=== PATIENT | male | born 1970 | race Caucasian/White ===

== ENCOUNTER 2024-07-29 17:56 | Emergency (ER) | payer SELFPAY ==
[~2024-07-29] VITALS: Ht 170.2 cm; Wt 108.9 kg
[2024-07-29 18:40] LABS: BASOPHILS ABSOLUTE AUTO 0.03 K/mm3 (0.00-0.23); BASOPHILS PERCENT AUTO 1 % (0-2); EOSINOPHILS PERCENT AUTO 0 % (0-6); Hematocrit 36.9 % (37.0-53.0); IMMATURE GRAN ABSOLUTE AUTO 0.03 K/mm3 (0.00-0.10); IMMATURE GRAN PERCENT AUTO 1 % (0-1); LYMPHOCYTES PERCENT AUTO 11 % (21-46); MONOCYTES ABSOLUTE AUTO 0.69 K/mm3 (0.16-1.47); MONOCYTES PERCENT AUTO 11 % (4-13); Mean Corpuscular HGB 30.2 pg (26.0-34.0); Mean Corpuscular HGB Conc 32.5 g/dL (31.5-36.5); Mean Corpuscular Volume 93 fL (80-100); Mean Platelet Volume 10.1 fL (9.1-12.4); NEUTROPHILS ABSOLUTE AUTO 4.97 K/mm3 (1.96-9.15); NEUTROPHILS PERCENT AUTO 77 % (41-73); Platelet Count 109 K/mm3 (150-400); RDW Standard Deviation 61.5 fL (35.1-46.3); Red Blood Cell Count 3.97 M/mm3 (4.30-5.90); White Blood Cell Count 6.42 K/mm3 (4.00-11.30)
[2024-07-29 18:59] LABS: Albumin, Blood 2.8 g/dL (3.4-5.0); Albumin/Globulin Ratio 0.6 (0.8-1.8); Bilirubin, Total 1.8 mg/dL (0.1-1.0); Calcium, Blood 8.3 mg/dL (8.5-10.1); Creatinine, Blood 0.71 mg/dL (0.60-1.20); Globulin, Blood 4.6 g/dL (2.2-4.0); Potassium, Blood 3.9 mmol/L (3.5-5.5); Total Protein, Blood 7.4 g/dL (6.4-8.2)
[2024-07-29 19:05] LABS: Influenza A, PCR NEGATIVE (NEGATIVE); Influenza B, PCR NEGATIVE (NEGATIVE); Resp Syncytial Virus, PCR NEGATIVE (NEGATIVE); SARS-Cov-2 (COVID-19) PCR, MMC NEGATIVE (NEGATIVE)
== END 2024-07-29 22:21 | disposition home or self-care (01) ==
LOC: ER 17:56
PROVIDERS: Student in an Organized Health Care Education/Training Program
DX: Z00.8 Encounter for other general examination (principal)
CPT/HCPCS: 0241U; 71046; 80053; 83690; 84484; 85025; 93005; 93010; 99284-25

== ENCOUNTER 2024-07-30 10:19 | Emergency (ER) | payer SELFPAY ==
[~2024-07-30] VITALS: Ht 170.2 cm; Wt 108.9 kg
== END 2024-07-30 10:33 | disposition home or self-care (01) ==
LOC: ER 10:19
DX: L03.116 Cellulitis of left lower limb (principal); L03.115 Cellulitis of right lower limb; D64.9 Anemia, unspecified
CPT/HCPCS: 99282

== ENCOUNTER 2024-08-01 13:32 | Inpatient (IN) | payer MEDICAID ==
[~2024-08-01] VITALS: Ht 172.7 cm; Wt 115.8 kg
[2024-08-01 15:07] LABS: Hematocrit 23.5 % (37.0-53.0); Hemoglobin 7.8 g/dL (13.5-17.5); Mean Corpuscular HGB 30.5 pg (26.0-34.0); Mean Corpuscular HGB Conc 33.2 g/dL (31.5-36.5); Mean Corpuscular Volume 92 fL (80-100); Mean Platelet Volume 10.6 fL (9.1-12.4); Platelet Count 71 K/mm3 (150-400); RDW Coefficient Variation 17.2 % (11.7-14.2); RDW Standard Deviation 58.8 fL (35.1-46.3); Red Blood Cell Count 2.56 M/mm3 (4.30-5.90); White Blood Cell Count 13.34 K/mm3 (4.00-11.30)
[2024-08-01 15:26] LABS: Albumin, Blood 2.2 g/dL (3.4-5.0); Albumin/Globulin Ratio 0.5 (0.8-1.8); Bilirubin, Total 1.3 mg/dL (0.1-1.0); Bun/Creatinine Ratio 18.4 (12.0-20.0); Creatinine, Blood 0.92 mg/dL (0.60-1.20); Globulin, Blood 4.1 g/dL (2.2-4.0); Potassium, Blood 3.3 mmol/L (3.5-5.5); Total Protein, Blood 6.3 g/dL (6.4-8.2)
[2024-08-01 15:32] LABS: BAND PERCENT MAN 10 % (0-8); BASOPHILS PERCENT MAN 0 % (0-2); EOSINOPHILS PERCENT MAN 0 % (0-6); LYMPHOCYTES PERCENT MAN 2 % (21-46); MONOCYTES PERCENT MAN 3 % (4-13); SEG NEUTROPHILS PERCENT MAN 85 % (41-73); TOTAL CELLS COUNTED 100
[2024-08-01 15:49] LABS: Ethanol (Alcohol), Blood, Med <3 mg/dL; Salicylate <1.7 mg/dL (2.8-20.0)
[2024-08-01 15:51] LABS: Acetaminophen, Random <2.0 ug/mL (10.0-30.0)
[2024-08-01] MEDS ORDERED: NS 500 ML IV SCH (16:15)
[2024-08-01] MEDS ORDERED: Cefepime HCl 2,000 MG in NS 100 ML IV ONE (16:25)
[2024-08-01 16:58] LABS: EOSINOPHILS ABSOLUTE AUTO 0.01 K/mm3 (0.00-0.68); EOSINOPHILS PERCENT AUTO 0 % (0-6); IMMATURE GRAN ABSOLUTE AUTO 0.16 K/mm3 (0.00-0.10); IMMATURE GRAN PERCENT AUTO 1 % (0-1); NEUTROPHILS ABSOLUTE AUTO 11.09 K/mm3 (1.96-9.15); NEUTROPHILS PERCENT AUTO 83 % (41-73)
[2024-08-01] MEDS ORDERED: NS 1,500 ML IV SCH (17:15)
[2024-08-01] MEDS ORDERED: Albuterol 2.5 MG/3 ML VIAL INH PRN (19:50)
[2024-08-01] MEDS ORDERED: Potassium Chloride 20 MEQ TabCR PO ONE (20:00)
[2024-08-01] MEDS ORDERED: LORazepam 2 MG/ML 1ML Injection IV ONE (20:00)
[2024-08-01] MEDS ORDERED: Vancomycin HCL 2,000 MG in NS 500 ML IV ONE (20:00)
[2024-08-01] MEDS ORDERED: Ondansetron HCl 2 MG / ML 2ML Vial IV PRN (20:05)
[2024-08-01] MEDS ORDERED: NS 1,000 ML IV SCH (20:10)
[2024-08-01 20:11] LABS: Hematocrit 35.9 % (37.0-53.0); Hemoglobin 12.3 g/dL (13.5-17.5)
[2024-08-01 20:41] LABS: International Normalized Ratio 1.39; Prothrombin Time Results 14.5 Sec (9.7-11.5)
[2024-08-01] MEDS ORDERED: Heparin Sodium 5000 Units/ML 1ML MDV SC SCH (21:00)
[2024-08-01 21:08] LABS: Base Excess Venous -0.3 mmol/L; Bicarbonate Venous 24.3 mmol/L (24.0-30.0); PCO2 Venous 38.4 mmHg (38-42); pH Blood Venous 7.41 (7.34-7.37)
[2024-08-01 21:31] LABS: Magnesium, Blood 1.4 mg/dL (1.6-2.4)
[2024-08-01 22:42] VITALS: BP 154/54
[2024-08-02] VITALS (8 sets, daily range): BP systolic 110–146; BP diastolic 62–119
[2024-08-02] MEDS ORDERED: CefTRIAXone Sodium 2,000 MG in NS 100 ML IV SCH
[2024-08-02] MEDS ORDERED: Acetaminophen 325 MG TABLET PO PRN (02:30)
[2024-08-02] MEDS ORDERED: Magnesium Sulf 2 GM/Water 50ML 50 ML IV ONE (02:30)
[2024-08-02 07:30] LABS: Alanine Aminotransfer (ALT/SGP 39 U/L (12-78); Albumin, Blood 1.9 g/dL (3.4-5.0); Albumin/Globulin Ratio 0.4 (0.8-1.8); Alk Phos 122 U/L (50-136); Anion Gap 13 mmol/L (3-11); Aspartate Aminotrans (AST/SGOT 73 U/L (12-37); Blood Urea Nitrogen 18 mg/dL (8-24); Bun/Creatinine Ratio 22.3 (12.0-20.0); CHOL/HDL RATIO 3.4; CO2, Blood 18 mmol/L (21-32); Calcium, Blood 7.4 mg/dL (8.5-10.1); Chloride, Blood 93 mmol/L (98-108); Cholesterol 58 mg/dL (50-200); Creatinine, Blood 0.81 mg/dL (0.60-1.20); Globulin, Blood 4.5 g/dL (2.2-4.0); Glomerular Filtration Rate 105 (60-); Glucose, Blood 104 mg/dL (70-99); HDL Cholesterol 17 mg/dL (>39); LDL/HDL RATIO 1.4; Low Density Lipoprotein Chol 24 mg/dL (0-110); Magnesium, Blood 1.9 mg/dL (1.6-2.4); Potassium, Blood 4.1 mmol/L (3.5-5.5); Sodium, Blood 120 mmol/L (136-145); Total Protein, Blood 6.4 g/dL (6.4-8.2); Triglycerides 85 mg/dL (30-160); Very Low Density Lipoprot Chol 17 mg/dL (6-32)
[2024-08-02] MEDS ORDERED: LORazepam 2 MG/ML 1ML Injection IV PRN (08:10)
[2024-08-02 08:15] LABS: BASOPHILS ABSOLUTE AUTO 0.09 K/mm3 (0.00-0.23); BASOPHILS PERCENT AUTO 0 % (0-2); Hematocrit 33.5 % (37.0-53.0); Hemoglobin 11.2 g/dL (13.5-17.5); LYMPHOCYTES ABSOLUTE AUTO 0.65 K/mm3 (0.84-5.20); LYMPHOCYTES PERCENT AUTO 3 % (21-46); MONOCYTES ABSOLUTE AUTO 1.42 K/mm3 (0.16-1.47); MONOCYTES PERCENT AUTO 6 % (4-13); Mean Corpuscular HGB 30.1 pg (26.0-34.0); Mean Corpuscular HGB Conc 33.4 g/dL (31.5-36.5); Mean Corpuscular Volume 90 fL (80-100); Platelet Count 117 K/mm3 (150-400); RDW Coefficient Variation 17.2 % (11.7-14.2); RDW Standard Deviation 57.2 fL (35.1-46.3); Red Blood Cell Count 3.72 M/mm3 (4.30-5.90); White Blood Cell Count 22.54 K/mm3 (4.00-11.30)
[2024-08-02 08:16] LABS: EOSINOPHILS ABSOLUTE AUTO 0.02 K/mm3 (0.00-0.68); EOSINOPHILS PERCENT AUTO 0 % (0-6); IMMATURE GRAN ABSOLUTE AUTO 0.58 K/mm3 (0.00-0.10); IMMATURE GRAN PERCENT AUTO 3 % (0-1); NEUTROPHILS ABSOLUTE AUTO 19.78 K/mm3 (1.96-9.15); NEUTROPHILS PERCENT AUTO 88 % (41-73)
[2024-08-02 08:39] LABS: BAND PERCENT MAN 2 % (0-8); BASOPHILS ABSOLUTE MAN 0.22 K/mm3 (0.00-0.23); BASOPHILS PERCENT MAN 1 % (0-2); EOSINOPHILS PERCENT MAN 0 % (0-6); LYMPHOCYTES ABSOLUTE MAN 0.22 K/mm3 (0.84-5.20); LYMPHOCYTES PERCENT MAN 1 % (21-46); MONOCYTES PERCENT MAN 8 % (4-13); NEUTROPHILS ABSOLUTE MAN 20.28 K/mm3 (1.96-9.15); SEG NEUTROPHILS PERCENT MAN 88 % (41-73); TOTAL CELLS COUNTED 100
[2024-08-02] MEDS ORDERED: Thiamine HCl 100 MG Tab PO SCH (09:00)
[2024-08-02] MEDS ORDERED: Multivitamins 1 Tab PO SCH (09:00)
[2024-08-02] MEDS ORDERED: Vancomycin HCL 1,500 MG in NS 250 ML IV SCH (09:00)
[2024-08-02 18:18] LABS: Bun/Creatinine Ratio 21.7 (12.0-20.0); Calcium, Blood 8.1 mg/dL (8.5-10.1); Creatinine, Blood 0.69 mg/dL (0.60-1.20)
[2024-08-02] MEDS ORDERED: NS 1,000 ML IV SCH (18:50)
--- NOTE | 2024-08-02 18:54 | NUR ---
End of shift note. Pt has been moderately cooperative with cares this shift. Staff has encouraged Pt to care for himself but he has been refusing to get OOB for a shower or walk to the bathroom. Pt has been incontient of bowel and bladder at times this shift. Poor PO intake. Blood cultures called back positive 2/2 bottles. MD is aware. Pt has been refusing VTE injections. Large amount of education given. Trending Na levels this shift, most recent BMP 122. MD notified, IVF orders. Pt is able to make needs known, call light is within reach.
--- NOTE | 2024-08-02 18:59 | NUR ---
Update. Triny Goldman was updated. [phone]. She lives in [place], has limited contact with Pt due to drug use history. She is available by phone for information.
--- NOTE | 2024-08-02 20:29 | NUR ---
ASSUMPTION OF CARE PT AXO4 - WANTING TO SLEEP, RARELY INTERACTIVE WITH CARE. VSS. ON RA. WOUNDS NOTED T/O BODY IN VARIOUS STAGES OF HEALING - SEE ASSJAEMRNT, MOST NOTABLE IS A NICKEL SIZED ABSCESS TO R CALF. PT REFUSING SC HEPARIN AND HAS BEEN SINCE ADSMISSION - PT EDUCATED. IV ABX INFUSING. PT CURRENTY DRINKING ORANGE JUICE AND STARRY SODA. BED IN LOW POSITION. BED ALARM ON. CALL LIGHT PLACED IN PATIENTS HAND.
[2024-08-03 03:38] VITALS: BP 102/60
--- NOTE | 2024-08-03 05:02 | NUR ---
SUMMARY SEE ASSUMPTION NOTE. POST ASSUMPTION, VSS. REMAINS ON RA OR REQUESTS 1L FOR COMFORT. WOUNDS UNCHANGED. AT ONE POINT, GOT UP AND VOIDED ON FLOOR AND BEDSIDE CABINET. STATES "YOU KNOW I HAVE SLEEP APNEA" BUT HAS ALSO USED URINAL APPROPRIATELY WELL, UNAWARE IF THIS INCONTINENT VOID WAS INTENTIONAL OR NOT. PT TURNING SELF IN BED. NOT WANTING ALOT OF STAFF INTERVENTION BUT HAS BEEN COOPERATIVE WHEN STAFF HAVE NEEDED TO DO THINGS. OTHERWISE, PT RESTING IN BED. CALL LIGHT WITHIN REACH.
[2024-08-03 05:05] LABS: Hematocrit 30.4 % (37.0-53.0); Hemoglobin 10.1 g/dL (13.5-17.5); Mean Corpuscular HGB 29.8 pg (26.0-34.0); Mean Corpuscular HGB Conc 33.2 g/dL (31.5-36.5); Mean Corpuscular Volume 90 fL (80-100); Mean Platelet Volume 10.4 fL (9.1-12.4); Platelet Count 125 K/mm3 (150-400); RDW Coefficient Variation 17.3 % (11.7-14.2); RDW Standard Deviation 57.2 fL (35.1-46.3); Red Blood Cell Count 3.39 M/mm3 (4.30-5.90); White Blood Cell Count 19.08 K/mm3 (4.00-11.30)
[2024-08-03 05:31] LABS: Albumin, Blood 1.6 g/dL (3.4-5.0); Anion Gap 10 mmol/L (3-11); Blood Urea Nitrogen 15 mg/dL (8-24); Bun/Creatinine Ratio 21.9 (12.0-20.0); CO2, Blood 23 mmol/L (21-32); Calcium, Blood 7.4 mg/dL (8.5-10.1); Chloride, Blood 93 mmol/L (98-108); Creatinine, Blood 0.68 mg/dL (0.60-1.20); Glomerular Filtration Rate 110 (60-); Glucose, Blood 107 mg/dL (70-99); Magnesium, Blood 1.8 mg/dL (1.6-2.4); Phosphorus, Blood 2.4 mg/dL (2.5-4.9); Potassium, Blood 3.9 mmol/L (3.5-5.5); Sodium, Blood 122 mmol/L (136-145)
[2024-08-03 07:31] VITALS: BP 111/63
[2024-08-03 08:41] LABS: Vancomycin, Trough 13.8 ug/mL (5.0-10.0)
[2024-08-03 09:15] LABS: U Amphetamine Screen Not Detected; U Barbituate Screen Not Detected; U Benzodiazapine Screen Not Detected; U Buprenorphine Screen Not Detected; U Cannabinoids Screen DETECTED; U Cocaine Screen Not Detected; U Methadone Screen Not Detected; U Methamphetamine Screen Not Detected; U Opiates Screen Not Detected; U Oxycodone Screen Not Detected; U Phencyclidine Screen Not Detected
--- NOTE | 2024-08-03 12:31 | NUR ---
TRANSFER NOTE: PATIENT WAS TAKEN UP VIA BED TO MEDICAL FLOOR WITH TELE. PATIENT BELONGINGS WERE BROUGHT UP. PATIENT IS ALERT AND ORIENTED X4 & GROUCHY STATING "WE ARE THROWING HIM OUT". PATIENT WAS EDUCATED THAT WAS NOT THE CASE AND SIMPLY A CHANGE IN FLOOR AND STATUS. RECEIVING RN AT BEDSIDE AND REPORT WAS GIVEN OVER THE PHONE PRIOR TO ARRIVAL.
[2024-08-03 12:40] VITALS: BP 99/59
--- NOTE | 2024-08-03 14:19 | NUR ---
RN NOTE MR GLASGOW WAS TRANSFERED TO MEDICAL FLOOR AT 1225 ON THE BED. HE HAS MUMBLED CONVERSATION, SOME OF IT DIFFICULT TO UNDERSTAND. HE SAID THAT HE IS ANNOYED BY ANSWERING QUESTIONS. HE PULLED OFF TELEMETRY STICKERS WHEN HE FIRST ARRIVED. HE REFUSED TO PARTAKE IN ANSWERING QUESTIONS FOR CIWA EXAM, HE WAS EDUCATED ON REASONS FOR CIWA AND OFFER FOR HELP IF HE IS WITHDRAWING. MR GLASGOW SAID THAT HE HAS NOT DRANK ALCOHOL FOR 1 TO 2 WEEKS. HE JUST USED CALL LIGHT TO CALL MECHANICAL ASSEMBLER WHO REPORTED THAT HE HAD SOME LIGHTHEADEDNESS WHEN HE STOOD. HE PULLED OFF ALL THE TELEMETRY LEADS AND SAID THAT HE DOES NOT WANT THE TELEMETRY BOX ON. HE HAS BEEN EDUCATED ON THE REASON FOR TELEMETRY MONITORING. DR HINTON CALLED - PER DR HINTON IDEALLY KEEP IT ON DUE TO LAB RESULTS IT WOULD BE BETTER TO KEEP PT ON TELEMETRY BUT IT CAN BE DISCONTINUED PT IS REFUSING IT. PT DID GET LEG ULTRASOUND DONE. BED ALARM ON, BED LOW, CALL LIGHT IN REACH.
--- NOTE | 2024-08-03 17:46 | NUR ---
SHIFT SUMMARY MR GLASGOW C/O NAUSEA, HEADACHE, ANXIETY AND WAS DEMONSTRATING SOME AGGITATION. GIVEN ATIVAN IV FOR CIWA OF 8. SLEEPING NOW, ON CONTINUOUS PULSE OX, 94% ON RA CURRENTLY. LEG ULTRASOUND DONE. IVF CONTINUE NS AT 50CC/HR. BED LOW, CALL LIGHT IN REACH. BED ALARM ON.
[2024-08-03 19:42] VITALS: BP 129/72
[2024-08-04 00:31] VITALS: BP 126/77
[2024-08-04 03:45] VITALS: BP 135/87
--- NOTE | 2024-08-04 03:58 | NUR ---
WAS RESTING QUIETLY WHEN NURSE SAW PT EARLIER, THEN SUDDENLY HEARD NOISE OF PT FALLING AND HITTING FLOOR. ON ARRIVAL IN ROOM, PT HAD VOIDED ON FLOOR AND GOT OOB AND APPARENTLY FELL ON FLOOR, DID NOT CALL FOR HELP HE HAD BEEN INSTRUCTED TO DO. GHARGE NURSE AT SCENE, ASSISTED BACK TO BED WITH KAYLIE LIFT. VSS. RAILS UP X 3 AND CALL LIGHT IN REACH. MD NOTIFIED, WILL MONITOR FOR HEADACHE AND S/S OF SEVERE COMPLICATIONS. IF S/S - STAT CT AT THAT TIME.
[2024-08-04 04:00] VITALS: BP 135/87
--- NOTE | 2024-08-04 04:24 | NUR ---
POULTRY SCALDER SUMMARY VSS. INTERMITTENT CALLING OUT, THROWING BLANKETS AND PILLOWS ON THE FLOOR AND VOIDING ON THE FLOOR AND AT TIMES IN HIS URINAL. REFIRECTED, ATIVAN IV AMINISTERED FOR AGITATION. IVF OF NS WAS INFUSING AT 50 ML/HR AND HAS BEEN TOLERATING PO FLUIDS WELL. WAS CHECKED ON INTERMITTENTLY THROUGHOUT SHIFT, APPEARED TO BE SLEEPING, THEN STAFF HEARD A LOUD SOUND IN THE ROOM AND FOUND HIM ON FLOOR. APPARENTLY VOIDED ON FLOOR AND GOT OOB AND SLIPPED IN URINE. ASSISTED TO BED VIA KAYLIE LIFT. VSS. NO NOTED ACUTE FINDINGS. NOTIFIED AND ORDERED TO MONITOR AND IF S/S HEADACHES OR S/S ACUTE DISTRESS, TO DO STAT CT. PT HAD PULLED OUT IVS AND DID NOT WANT ANOTHER IN. CALL LIGHT IN REACH, RAILS UP X 2 AND BED IN LOW POSITOIN FOR SAFETY WILL MONITOR
[2024-08-04 05:55] LABS: Hematocrit 32.7 % (37.0-53.0); Mean Corpuscular HGB 30.4 pg (26.0-34.0); Mean Corpuscular HGB Conc 33.6 g/dL (31.5-36.5); Mean Corpuscular Volume 90 fL (80-100); Mean Platelet Volume 10.5 fL (9.1-12.4); Platelet Count 152 K/mm3 (150-400); RDW Coefficient Variation 17.2 % (11.7-14.2); RDW Standard Deviation 56.9 fL (35.1-46.3); Red Blood Cell Count 3.62 M/mm3 (4.30-5.90); White Blood Cell Count 20.69 K/mm3 (4.00-11.30)
--- NOTE | 2024-08-04 06:14 | NUR ---
RESTING QUIETLY. ASYMPTOMATIC. CALL LIGHT IN REACH
[2024-08-04 06:22] LABS: Albumin, Blood 1.7 g/dL (3.4-5.0); Anion Gap 10 mmol/L (3-11); Blood Urea Nitrogen 10 mg/dL (8-24); Bun/Creatinine Ratio 17.4 (12.0-20.0); CO2, Blood 26 mmol/L (21-32); Calcium, Blood 7.7 mg/dL (8.5-10.1); Chloride, Blood 94 mmol/L (98-108); Creatinine, Blood 0.58 mg/dL (0.60-1.20); Glomerular Filtration Rate 116 (60-); Glucose, Blood 109 mg/dL (70-99); Magnesium, Blood 1.9 mg/dL (1.6-2.4); Phosphorus, Blood 2.4 mg/dL (2.5-4.9); Potassium, Blood 3.9 mmol/L (3.5-5.5); Sodium, Blood 126 mmol/L (136-145)
[2024-08-04 07:23] VITALS: BP 121/75
--- NOTE | 2024-08-04 09:09 | NUR ---
MD CALL RIGHT LEG REDNESS EXTENDS UP INTO THE THIGH. MARKED. RIGHT MIDDLE FINGER TIP LOOKS BLACK. REPEAT PHOTOGRAPHS TAKEN AND DR HINTON NOTIFIED.
--- NOTE | 2024-08-04 09:11 | NUR ---
RN NOTE MR GLASGOW HAD RECENT FALL ON PREVIOUS SHIFT. HIGH FALL RISK DUE TO BEHAVIOR. BED ALARM ON. PT EDUCATED ON FALL PRECAUTIONS AND ABLE TO VERBALISE UNDERSTANDING BUT NOT DEMONSTRATING GOOD DECISION MAKING IN GENERAL. CALL LIGHT IN REACH AND FREQUENT CHECKS. CAMERA MONITORING UNAVAILABLE. SITTER REQUESTED FROM CHARGE NURSE.
[2024-08-04] MEDS ORDERED: OLANZapine ODT 5 MG Tab MM PRN (12:15)
--- NOTE | 2024-08-04 15:38 | NUR ---
SHIFT SUMMARY MR GLASGOW IS ABLE TO ANSWER ORIENTATION QUESTIONS. MUMBLED CONVERSATION THAT SEEMS CONFUSED AT TIMES. HE HAS BEEN SLEEPY ON AND OFF THROUGHOUT THE DAY. THIS MORNING HE WAS IMPULSIVE, GETTING UP OUT OF BED, SETTING OFF THE BED ALARM FREQUENTLY. THIS AFTERNOON HE HAS BEEN SLEEPING MORE/MORE SETTLED. ON CONTINUOUS PULSE OX CURRENLY AT 97% ON ROOM AIR. DR FERNANDO ASSESSED WOUNDS, PORTABLE R HAND XRAY DONE FOR RIGHT MIDDLE FINGER GANGRENOUS AREA/BLACK FINGER TIP. WOUND CULTURE SENT FROM OPEN AREA BEHIND RIGHT KNEE. NEW PIV PLACED THIS MORNING. IVF DISCONTINUED, PT IS DRINKING PO FLUIDS WELL AND VOIDING WELL. HE HAS SITTER AT BEDSIDE FOR HIGH FALL RISK/SAFETY AND IMPULSIVENESS. HE HAS HAD EPISODES OF CONTINENCE, USING THE URINAL AND INCONTINENCE, URINATING IN THE BED AND ON THE FLOOR. BED LOW, CALL LIGHT IN REACH, BED ALARM ON.
[2024-08-04 16:53] VITALS: BP 121/79
[2024-08-04] MEDS ORDERED: Sodium Phosphate Mono/Dibasic 250 MG Tab PO SCH (17:00)
[2024-08-04 20:20] VITALS: BP 114/61
[2024-08-04] MEDS ORDERED: Protein Supplement 30 ML UD PO SCH (21:00)
[2024-08-04] MEDS ORDERED: Arginine/Glutamine/Calcium Hmb 1 Packet PO SCH (21:00)
[2024-08-05] VITALS (8 sets, daily range): BP systolic 109–148; BP diastolic 69–101
[2024-08-05] MEDS ORDERED: CeFAZolin Sodium 2,000 MG in NS 100 ML IV SCH
--- NOTE | 2024-08-05 03:33 | NUR ---
POT FISHER SUMMARY VSS. SITTER AT BEDSIDE FOR BEHAVIORAL ISSUES. WAS RESTING QUIETLY AT SHIFT START, BUT SOON AFTER, PULLED IV OUT, BLEEDING ON SHEET AND FLOOR. PT CLEANED, LINEN CHANGED AND FLOOR CLEANED OF BLOOD. PT NON COMPLIANT WITH REQUESTS TO REDIRECT. VERY AGITATED AT INTERVALS. MULTIPLE ATTEMPTS TO PLACE ANOTHER IV, FINALLY ONE PLACED. ATIVAN ADMIN, RESTING QUIETLY AT THIS TIME. CALL LIGHT IN REACH, RAILS UP X 3 AND BED IN LOW POSITION FOR SAFETY. IV ANTIBIOTICS ADMIN. BLE REMAINS RED AND SWOLLEN. CONT TO ENCOURAGE PT TO COMPLY WITH CARE.
[2024-08-05 06:05] LABS: Hematocrit 34.2 % (37.0-53.0); Hemoglobin 11.1 g/dL (13.5-17.5); Mean Corpuscular HGB 29.7 pg (26.0-34.0); Mean Corpuscular HGB Conc 32.5 g/dL (31.5-36.5); Mean Corpuscular Volume 91 fL (80-100); Mean Platelet Volume 10.4 fL (9.1-12.4); Platelet Count 172 K/mm3 (150-400); RDW Coefficient Variation 17.4 % (11.7-14.2); RDW Standard Deviation 58.9 fL (35.1-46.3); Red Blood Cell Count 3.74 M/mm3 (4.30-5.90); White Blood Cell Count 18.79 K/mm3 (4.00-11.30)
[2024-08-05 06:39] LABS: Albumin, Blood 1.7 g/dL (3.4-5.0); Anion Gap 8 mmol/L (3-11); Blood Urea Nitrogen 10 mg/dL (8-24); Bun/Creatinine Ratio 15.4 (12.0-20.0); CO2, Blood 29 mmol/L (21-32); Calcium, Blood 7.9 mg/dL (8.5-10.1); Chloride, Blood 99 mmol/L (98-108); Creatinine, Blood 0.65 mg/dL (0.60-1.20); Glomerular Filtration Rate 112 (60-); Glucose, Blood 106 mg/dL (70-99); Magnesium, Blood 1.9 mg/dL (1.6-2.4); Phosphorus, Blood 2.8 mg/dL (2.5-4.9); Potassium, Blood 3.8 mmol/L (3.5-5.5); Sodium, Blood 132 mmol/L (136-145)
[2024-08-05] MEDS ORDERED: Nicotine 14 MG PATCH TOP SCH (10:25)
[2024-08-05] MEDS ORDERED: dexmedeTOMIDine 100 ML IV SCH (18:35)
[2024-08-05 19:02] LABS: PO2 Arterial 102 mmHg (80-100); pH Blood Arterial 7.24 (7.35-7.45)
[2024-08-05 19:03] LABS: PCO2 Arterial 76.4 mmHg (35-45)
--- NOTE | 2024-08-05 19:26 | NUR ---
PATIENT TRANSFERRED TO ICU 13, REPORT TO GUSTAVO ROBERTSON, PATIENT BECAME OBTUNDED, WOKE TO DEEP STERNAL RUB, MARIS RN AND CIU RN EVALUATED PATIENT, PATIENT ACCEPTED TO ICU, DR HINTON AWARE, REPORTED TO PATIENTS DAUGHTER PIERCE OF THE CHANGE IN STATUS. PATIENTS CIWA 15-19, RESPS 25-30, POSSIBLE BIPAP, ABD DISTENTION INCREASING WITH RAPID BREATHING. CONITUED RESTLESS MOVEMENTS, PUPILS CONSTRICTED, UNABLE TO MAKE NEEDS KNOWN, TO ICU FOR CLOSER MONITORING ADN WITHDRAWLS SYMPTOMS
[2024-08-05 22:01] LABS: Base Excess Venous 7.4 mmol/L; Bicarbonate Venous 29.2 mmol/L (24.0-30.0); PCO2 Venous 52.3 mmHg (38-42)
[2024-08-06] VITALS (53 sets, daily range): BP systolic 87–157; BP diastolic 47–125
--- NOTE | 2024-08-06 06:33 | NUR ---
SHIFT SUMMARY PT HAS REMAINED FAIELY SOMNOLENT THROUGHOUT SHIFT. HE RESPONDS TO PRESSURE AND MOVES AROUND ON HIS OWN PERIODICALLY. HE HAD ONE PERIOD OF AGITATION AND WAS NOT REDIRECTABLE, TREATED WITH ATIVAN. NO OTHER ISSUES LIKE THAT AFTER. PRECEDEX IS OFF THIS AM, PT STILL SLEEPING. WOUNDS ON HIS FEET AND LEGS WERE CLEANED AND LEFT OPEN TO AIR. PT HAS BEEN IN A SINUS RHYTHM WITH A STABLE BP. BREATHING DOES STILL APPEAR SOMEWHAT LABORED, BUT HAS IMPROVED WITH WEARING THE BIPAP THROUGHOUT THE NIGHT.
[2024-08-06 08:24] LABS: Hematocrit 37.7 % (37.0-53.0); Hemoglobin 11.6 g/dL (13.5-17.5); Mean Corpuscular HGB 29.3 pg (26.0-34.0); Mean Corpuscular HGB Conc 30.8 g/dL (31.5-36.5); Mean Corpuscular Volume 95 fL (80-100); Mean Platelet Volume 10.6 fL (9.1-12.4); Platelet Count 193 K/mm3 (150-400); RDW Coefficient Variation 17.9 % (11.7-14.2); RDW Standard Deviation 63.1 fL (35.1-46.3); Red Blood Cell Count 3.96 M/mm3 (4.30-5.90); White Blood Cell Count 13.39 K/mm3 (4.00-11.30)
[2024-08-06 09:06] LABS: Albumin, Blood 1.8 g/dL (3.4-5.0); Anion Gap 8 mmol/L (3-11); Blood Urea Nitrogen 11 mg/dL (8-24); Bun/Creatinine Ratio 17.5 (12.0-20.0); CO2, Blood 33 mmol/L (21-32); Calcium, Blood 8.2 mg/dL (8.5-10.1); Chloride, Blood 103 mmol/L (98-108); Creatinine, Blood 0.63 mg/dL (0.60-1.20); Glomerular Filtration Rate 113 (60-); Glucose, Blood 70 mg/dL (70-99); Phosphorus, Blood 4.1 mg/dL (2.5-4.9); Potassium, Blood 4.5 mmol/L (3.5-5.5); Sodium, Blood 139 mmol/L (136-145)
[2024-08-06 16:20] LABS: Base Excess Venous 9.6 mmol/L; Bicarbonate Venous 31.6 mmol/L (24.0-30.0); PCO2 Venous 58.5 mmHg (38-42); pH Blood Venous 7.38 (7.34-7.37)
--- NOTE | 2024-08-06 17:42 | NUR ---
TO CT SCAN FOR IMAGES OF RIGHT LEG, PT VERY PAINFUL. RETURNED TO ICU ROOM 2, REPORT GIVEN TO MARGARITA JACKSON AND SN SLIM. PT IS MORE ALERT AND COMMUNICATING. HE IS STILL CONFUSED ABOUT DETAILS AND INFORMATION. HIS WOUNDS TO THE RIGHT LEG WERE DRESSED PER WITH COLLAGEN ON UPPER POSTERIOR THIGH, OIL EMULSION DRESSING TO MEDIAL CALF, AND MEPITEL TO RIGHT MURILLO, COVERED BY KERLIX ROLL. PT IS MOVING BOTH EXTREMITIES, CROSSES ANKLES OFTEN, ENCOURAGED TO NOT AND HE SAYS, "IT'S OKAY". RIGHT FOOT REMAINS SWOLLEN AND EDEMATOUS, SLIGHT IMPROVEMENT FROM THIS AM, WITH PULSES PALPABLE SINCE NOON ASSESSMENT. URINE OUTPUT PER KIMBERLY PADILLA @ 0.2MCG/KG. NO FURTHER CHANGES.
--- NOTE | 2024-08-06 18:01 | NUR ---
UPDATE ASSUMED CARE OF PATIENT. PT AWAKE AND ALERT. PT ABLE TO STATE HIS NAME AND . PT CONFUSED ON PLACE AND SITUATION. PT RESTLESS AND PULLING AT O2. O2 SATS >90% ON 2L NC. BP STABLE. HR NSR 90'S. PT VOIDING USING PUREWICK DEVICE. WOUND TO RLE DRESSED BY PREVIOUS NURSE. RIGHT MIDDLE FINGER BLACK AT THE TIP AND OPEN TO AIR. PT DENIES ANY PAIN AT THIS TIME. PRECEDEX INFUSING AT 0.2MCG/KG/HR. WILL CONTINUE PLAN OF CARE AND REPORT TO ONCOMING RN
[2024-08-07] VITALS (70 sets, daily range): BP systolic 85–129; BP diastolic 51–87
[2024-08-07 04:46] LABS: Hematocrit 36.7 % (37.0-53.0); Hemoglobin 11.6 g/dL (13.5-17.5); Mean Corpuscular HGB 30.1 pg (26.0-34.0); Mean Corpuscular HGB Conc 31.6 g/dL (31.5-36.5); Mean Corpuscular Volume 95 fL (80-100); Mean Platelet Volume 9.4 fL (9.1-12.4); Platelet Count 166 K/mm3 (150-400); Red Blood Cell Count 3.85 M/mm3 (4.30-5.90); White Blood Cell Count 7.97 K/mm3 (4.00-11.30)
[2024-08-07 04:47] LABS: Base Excess Venous 10.3 mmol/L; Bicarbonate Venous 31.2 mmol/L (24.0-30.0); PCO2 Venous 66.7 mmHg (38-42); pH Blood Venous 7.34 (7.34-7.37)
[2024-08-07 05:08] LABS: Albumin, Blood 1.5 g/dL (3.4-5.0); Anion Gap 5 mmol/L (3-11); Blood Urea Nitrogen 17 mg/dL (8-24); Bun/Creatinine Ratio 27.2 (12.0-20.0); CO2, Blood 34 mmol/L (21-32); Calcium, Blood 7.6 mg/dL (8.5-10.1); Chloride, Blood 104 mmol/L (98-108); Creatinine, Blood 0.62 mg/dL (0.60-1.20); Glomerular Filtration Rate 114 (60-); Glucose, Blood 89 mg/dL (70-99); Magnesium, Blood 2.1 mg/dL (1.6-2.4); Phosphorus, Blood 4.7 mg/dL (2.5-4.9); Potassium, Blood 4.6 mmol/L (3.5-5.5); Sodium, Blood 138 mmol/L (136-145)
--- NOTE | 2024-08-07 06:18 | NUR ---
ASSUMED CARE AT 1900, PT AOX1-2, ON BIPAP. PRECEDEX INFUSION AT 0.2MCG/KG/HR. PT LYING IN BED RESTLESS, PULLING AT BIPAP. PT DID HAVE A MILD EPISODE OF BRADYCARDIA WHEN PRECEDEX 1.2MCG/KG/HR WHICH RESOLVED WHEN TITRATED BACK TO 1.0MCG/KG/HR. OTHERWISE VITAL SIGNS STABLE THROUGHOUT SHIFT. PT ON BIPAP FOR MOST OF THE SHIFT WITH MINIMAL BREAKS FOR ORAL CARE. PT INTERMITTENTLY TOLERATE OF BIPAP EVEN ON THE HIGHER DOSES OF PRECEDEX, HAD HAS PULLED OF MASK FREQUENTLY. PT NOTED TO NOT HAVE HAD URINARY OUTPUT CARE HOME THROUGH SHIFT AND PT WAS BLADDER SCANNED AND THEN STRAIGHT CATH FOR 600ML OUTPUT. NO BM THIS SHIFT. PT MENTATION WAS LABILE, AOX1-3. AOX3 CARE HOME THROUGHOUT DETERIORATING BACK TO AOX1. PT TOLERATING IV ABX WELL. PT DID NOT SLEEP THIS SHIFT UNTIL NEAR END OF SHIFT, WOUND CARE DEFERRED TO ALLOW PT TO SLEEP, DRESSINGS REMAIN CLEAN, DRY, INTACT. NO SHADOWING OR NEW DRAINAGE NOTED AT THIS TIME. NO CHANGES TO SKIN FROM INITIAL ASSESSMENT. PT REPOSITIONED FREQUENTLY TO PREVENT BREAKDOWN. PUREWICK IN PLACE S/P STRAIGHT CATH TO HELP MAINTAIN SKIN INTEGRITY AND MONITOR OUTPUT. PT REMAINS AFEBRILE AT THIS TIME.
--- NOTE | 2024-08-07 06:34 | NUR ---
CIWAS <8 THROUGHOUT SHIFT
[2024-08-07] MEDS ORDERED: NS 1,000 ML IV SCH (08:30)
--- NOTE | 2024-08-07 12:30 | NUR ---
ASSUMED CARE OF PT AT APPROX 0715 AFTER RECEIVING REPORT FROM MARGARITA HORNE. PT WILL WAKE TO VERBAL OR PAIN, ORIENTED x1-2, MOVES ALL EXTREMITIES INDEPENDENTLY, WILL GO THROUGH RESTLESS EPISODES WHERE HE PULLS AT BIPAP BUT WILL RESPOND TO REDIRECTION. PRECEDEX TITRATED DOWN TO 0.4 MCG/KG/HR AT THIS POINT, PT IS CURRENTLY TOLERATING WELL, IS ABLE TO COMMUNICATE NEEDS WITH MUMBLED SPEECH AND FOLLOW DIRECTIONS. PT HAS BEEN ON BIPAP T/OUT THE MORNING, BRIEF BREAKS FOR ORAL CARE. SR ON MONITOR, RATE THIS AM HAS BEEN HIGH 50s-LOW 60s. NO URINARY OUTPUT THIS AM, BLADDER SCAN SHOWED 487 ML, THEN STRAIGHT CATH PERFORMED W/475 ML OUTPUT. WOUND CARE COMPLETED BY THIS RN. PT HAS BEEN REPOSITIONED Q2H. PT RESTING QUIETLY AT THIS TIME, WILL CONTINUE TO MONITOR AND TREAT ACCORDINGLY UNTIL CHANGE OF SHIFT.
--- NOTE | 2024-08-07 17:55 | NUR ---
SHIFT SUMMARY: PT's MENTATION CONTINUES TO BE LABILE. PRECEDEX WAS TITRATED DOWN TO 0.4 MCG/KG/HR, WHICH PT TOLERATED UNTIL APPROX, WHEN HE STARTED BECOMING MORE AGITATED, PULLING AT BIPAP AND OTHER LINES, NOT EASY TO REDIRECT. PRECEDEX TITRATED UP, CURRENTLY AT 0.8 MCG/KG/HR. PT CONTINUES TO PULL AT BIPAP AND LINES BUT LESS OFTEN AND IS BECOMING EASIER TO REDIRECT. MUMBLED SPEECH CONTINUES, ORAL CARE PERFORMED Q4H, PT PROVIDED W/WATER AND ICE CHIPS WHICH HE TOLERATES WELL, MEAL TRAYS HELD DUE TO MENTATION/ASPIRATION CONCERN. ATTEMPTED TO ASSIST PT WITH URINAL THIS EVENING, PT UNABLE TO VOID DESPITE VERBAL PROMPTING, BLADDER SCAN PERFORMED W/123 ML, NO STRAIGHT CATH PERFORMED OTHER THAN THE ONE EARLIER IN THE SHIFT (TOTAL OF 2 STRAIGHT CATHs SO FAR).
[2024-08-07 20:38] LABS: Base Excess Venous 10.2 mmol/L; Bicarbonate Venous 31.5 mmol/L (24.0-30.0); PCO2 Venous 56.2 mmHg (38-42)
[2024-08-08] VITALS (90 sets, daily range): BP systolic 77–133; BP diastolic 49–87
--- NOTE | 2024-08-08 00:54 | NUR ---
MED PT YELLING OUT SAYING,"MY BROTHER IS GOING ON A SHIP TO [place]. I NEED TO CALL HIM BEFORE HE LEAVES". TRIED TO REORIENT. KOJO BAIRES WITH BERE
--- NOTE | 2024-08-08 04:25 | NUR ---
PT WAS BLADDER SCANNED D/T NO OUTPUT FOR SHIFT, GREATER THAN 400ML IN BLADDER. STRAIGHT CATH PERFORMED. PT HAS HAD 3 STRAIGHT CATHS D/T RETENTION OVER LAST 3 SHIFTS. 500ML JABIER URINE OBTAINED. WOUND CARE PERFORMED PER ORDER ON RIGHT LEG. PT REPOSITIONED. BIPAP IN PLACE AND PT TOLERATING WELL WHILE ON PRECEDEX INFUSION.
[2024-08-08 04:58] LABS: Hematocrit 37.9 % (37.0-53.0); Mean Corpuscular HGB 29.9 pg (26.0-34.0); Mean Corpuscular HGB Conc 31.7 g/dL (31.5-36.5); Mean Corpuscular Volume 95 fL (80-100); Platelet Count 159 K/mm3 (150-400); RDW Coefficient Variation 17.6 % (11.7-14.2); RDW Standard Deviation 61.5 fL (35.1-46.3); Red Blood Cell Count 4.01 M/mm3 (4.30-5.90); White Blood Cell Count 4.95 K/mm3 (4.00-11.30)
[2024-08-08 05:02] LABS: Bicarbonate Venous 30.1 mmol/L (24.0-30.0); PCO2 Venous 57.6 mmHg (38-42); pH Blood Venous 7.37 (7.34-7.37)
[2024-08-08 05:19] LABS: Albumin, Blood 1.4 g/dL (3.4-5.0); Anion Gap 6 mmol/L (3-11); Blood Urea Nitrogen 23 mg/dL (8-24); Bun/Creatinine Ratio 34.7 (12.0-20.0); CO2, Blood 31 mmol/L (21-32); Calcium, Blood 7.6 mg/dL (8.5-10.1); Chloride, Blood 105 mmol/L (98-108); Creatinine, Blood 0.66 mg/dL (0.60-1.20); Glomerular Filtration Rate 111 (60-); Glucose, Blood 119 mg/dL (70-99); Magnesium, Blood 2.1 mg/dL (1.6-2.4); Phosphorus, Blood 4.1 mg/dL (2.5-4.9); Potassium, Blood 4.7 mmol/L (3.5-5.5); Sodium, Blood 137 mmol/L (136-145)
--- NOTE | 2024-08-08 06:46 | NUR ---
PT DID HAVE ELEVATED CIWAS THIS SHIFT AND WAS MEDICATED FOR THEM, SEE EMAR. PT OTHERWISE STABLE DURING SHIFT. PT WORE BIPAP SINCE 2114 AND THIS WAS MAINTAINED WITH PRECEDEX INFUSION. PRECEDEX INFUSION WAS TITRATED FOR HEARTRATE. WOUND CARE WAS DONE TO RIGHT LEG. STRAIGHT CATH PERFORMED D/T URINARY RETENTION, THIS WAS THE THIRD STRAIGHT CATH. PT DID HAVE HALLUCINATIONS BOTH AUDITORY AND VISUAL WITH HIS ELEVATED CIWAS. PT ORIENTATION WAS LABILE AOX1-3 THROUGHOUT THE SHIFT. NO BM NOTED. PT WAS REPOSITIONED FREQUENTLY. NO SKIN BREAKDOWN NOTED, SKIN REMAINS BLANCHABLE.
[2024-08-08] MEDS ORDERED: Furosemide 10 MG / ML 2ML Vial IV SCH ×2 (09:25→18:00)
[2024-08-08] MEDS ORDERED: Albumin (Human) 25gm/100ml 100 ML IV SCH (09:30)
--- NOTE | 2024-08-08 17:35 | NUR ---
SHIFT SUMMARY NO ACUTE CHANGES THIS SHIFT. PT OFF BIPAP THIS AFTERNOON ON 2L O2 NC. PT WITH CONTINUED CONFUSION AND PULLING AT LINES/TUBES WHEN MORE AWAKE. PT ABLE TO ANSWER SOME ORIENTATION QUESTIONS, BUT IS CONFUSED AND SPEECH IS NONSENSICAL MOST OF THE TIME. PT NOT REDIRECTABLE. PRECEDEX INFUSING AT 0.6 MCG/KG/HR AND PT MED WITH ATIVAN PRN. CIWA SCORES 7-17. PG TO KAITLYN C/D/I. PT WITH MALE PUREWICK ON FOR SHORT TIME THIS MORNING, THEN PT PULLED. PT WITH ATTENDS IN PLACE AT THIS TIME. PT VOIDED WITH PUREWICK AND ATTENDS ON THIS SHIFT. WOUNDS REMAIN UNCHANGED. DRESSINGS CHANGED THIS SHIFT. VITAL SIGNS STABLE. NO FAMILY AT BEDSIDE. WILL CONTINUE TO MONITOR AND REPORT OFF TO ONCOMING RN.
[2024-08-09] VITALS (77 sets, daily range): BP systolic 80–158; BP diastolic 45–112
--- NOTE | 2024-08-09 06:03 | NUR ---
SHIFT SUMMARY ASSUMED CARE OF PT AT 1900, PT DROWSY, RASS -1 ON PRECEDEX GTT, AROUSES TO VERBAL STIMULI, ORIENTED TO SELF ONLY, DOES NOT FOLLOW COMMANDS, EASILY AGITATED AND YELLING WITH STIMULI, CIWA OF 12-22, PRECEDEX TITRATED PER EMAR FOR RASS 0/-2, MEDICATED WITH ATIVAN IVP X1 FOR SCREAMING AND ATTEMPTING TO PULL OUT PIV AND PULLING OFF TELEMETRY, MEDICATED WITH ZYPREXA X2 FOR INCREASED AGITATION, SCREAMING, ATTEMPTING TO GET OUT OF BED, ATTEMPTING TO PULL ON PIV LINES, REMOVING O2 NC AND O2 SENSOR, ZYPREXA AND PRECEDEX GTT EFFECTIVE, AFEBRILE, SR 60-70s SBP 100-115, RESP EVEN AND UNLABORED ON 2 LPM NC WITH SPO2 >65, PUREWICK IN PLACE AND PT VOIDS WITHOUT DIFFICULTY, PIV OT LEFT HAND AND POWERGLIDE TO LEFT UPPER ARM PATENT, DRESSING TO RLE CHANGED PER ORDERS , PT TOLERATED WELL, REPOSITIONED EVERY 2 HOURS, SIDE RAILS UP X3 BED ALARM ON, CALL LIGHT IN REACH
[2024-08-09 06:06] LABS: BASOPHILS ABSOLUTE AUTO 0.03 K/mm3 (0.00-0.23); BASOPHILS PERCENT AUTO 1 % (0-2); EOSINOPHILS ABSOLUTE AUTO 0.09 K/mm3 (0.00-0.68); EOSINOPHILS PERCENT AUTO 3 % (0-6); Hematocrit 36.3 % (37.0-53.0); Hemoglobin 11.4 g/dL (13.5-17.5); IMMATURE GRAN ABSOLUTE AUTO 0.07 K/mm3 (0.00-0.10); IMMATURE GRAN PERCENT AUTO 2 % (0-1); LYMPHOCYTES ABSOLUTE AUTO 0.89 K/mm3 (0.84-5.20); LYMPHOCYTES PERCENT AUTO 24 % (21-46); MONOCYTES ABSOLUTE AUTO 0.19 K/mm3 (0.16-1.47); MONOCYTES PERCENT AUTO 5 % (4-13); Mean Corpuscular HGB 29.2 pg (26.0-34.0); Mean Corpuscular HGB Conc 31.4 g/dL (31.5-36.5); Mean Corpuscular Volume 93 fL (80-100); Mean Platelet Volume 9.7 fL (9.1-12.4); NEUTROPHILS ABSOLUTE AUTO 2.38 K/mm3 (1.96-9.15); NEUTROPHILS PERCENT AUTO 65 % (41-73); Platelet Count 132 K/mm3 (150-400); RDW Coefficient Variation 17.4 % (11.7-14.2); White Blood Cell Count 3.65 K/mm3 (4.00-11.30)
[2024-08-09 06:34] LABS: Albumin, Blood 1.8 g/dL (3.4-5.0); Albumin/Globulin Ratio 0.3 (0.8-1.8); Bilirubin, Total 0.6 mg/dL (0.1-1.0); Bun/Creatinine Ratio 36.5 (12.0-20.0); Calcium, Blood 7.8 mg/dL (8.5-10.1); Creatinine, Blood 0.63 mg/dL (0.60-1.20); Globulin, Blood 5.2 g/dL (2.2-4.0)
[2024-08-09] MEDS ORDERED: ChlordiazePOXIDE 25 MG Cap PO PRN (14:35)
--- NOTE | 2024-08-09 18:46 | NUR ---
SHIFT SUMMARY: AT THE START OF SHIFT PT WAS ALERT BUT CONFUSED KNEW THEIR NAME AND PLACE BUT WOULD MUMMBLE A LOT, THEY ARE ABLE TO FOLLOW COMMANDS. THEY WERE ON A PRECEDEX DRIP THAT WAS TRIATED DOWN AND TURNED OFF AROUND 12:00PM. THE PT STARTED TO BECOME VERY RESTLESS IN THE AFTERNOON, THEY WERE GIVEN ATIVAN WHICH HELPED CALM THEM DOWN. THEIR LUNG SOUNDS WERE CLEAR AND EAUL BILATERALLY. SYSTOLIC BP HAS BEEN 100 - 120'S WITH MAP >65 AND IN SINUS RYTHM. THEY HAVE A WOUND ON THE LEFT LOWER LEG WHICH WAS CLEANED AND DRESSED AND COVERED WITH KERLEX. THEIR FINGER TIP ON THE LEFT HAND IN BLACK AND NECROTIC, DOCTOR IS AWARE AND WAITING FOR IT TO FALL OFF. THE PATIENT WILL ALERT STAFF THEY NEED TO USE THE BATHROOM BUT THEY HAVE A PUREWICK IN PLACE AND JUST NEED TO BE REMINDED THEY CAN URINATE WITH IT ON, ALSO WHEN THEY GET RESTLESS THEY WILL SOMETIMES GRAB AND REMOVE THE PUREWICK. THE DID HAVE A 1 BM TODAY, AND THEY GOT A CHG BED BATH. THEY WERE ABLE TO EAT SOME FOOD AT DINNER AND HAVE BEEN ABLE TO DRINK SOME SIPS OF WATER DURING THE DAY. THEY LINES, CORDS, AND TUBES WERE PLACED OUT OF THE WAY. THE CALL LIGHT WAS PLACED WITHIN THEIR REACH.
[2024-08-09] MEDS ORDERED: Gabapentin 300 MG Cap PO SCH (21:00)
[2024-08-10] VITALS (10 sets, daily range): BP systolic 121–157; BP diastolic 56–93
[2024-08-10 04:57] LABS: BASOPHILS ABSOLUTE AUTO 0.03 K/mm3 (0.00-0.23); BASOPHILS PERCENT AUTO 1 % (0-2); EOSINOPHILS ABSOLUTE AUTO 0.08 K/mm3 (0.00-0.68); EOSINOPHILS PERCENT AUTO 2 % (0-6); Hematocrit 32.1 % (37.0-53.0); Hemoglobin 10.5 g/dL (13.5-17.5); IMMATURE GRAN ABSOLUTE AUTO 0.02 K/mm3 (0.00-0.10); IMMATURE GRAN PERCENT AUTO 0 % (0-1); LYMPHOCYTES ABSOLUTE AUTO 1.06 K/mm3 (0.84-5.20); LYMPHOCYTES PERCENT AUTO 19 % (21-46); MONOCYTES ABSOLUTE AUTO 0.38 K/mm3 (0.16-1.47); MONOCYTES PERCENT AUTO 7 % (4-13); Mean Corpuscular HGB 29.2 pg (26.0-34.0); Mean Corpuscular HGB Conc 32.7 g/dL (31.5-36.5); Mean Corpuscular Volume 89 fL (80-100); Mean Platelet Volume 9.4 fL (9.1-12.4); NEUTROPHILS ABSOLUTE AUTO 3.91 K/mm3 (1.96-9.15); NEUTROPHILS PERCENT AUTO 71 % (41-73); Platelet Count 110 K/mm3 (150-400); RDW Coefficient Variation 17.3 % (11.7-14.2); RDW Standard Deviation 57.6 fL (35.1-46.3); Red Blood Cell Count 3.59 M/mm3 (4.30-5.90); White Blood Cell Count 5.48 K/mm3 (4.00-11.30)
--- NOTE | 2024-08-10 05:06 | NUR ---
NOC SHIFT SUMMARY NO ACUTE EVENTS OVERNIGHT. PT DID NOT SLEEP FOR OF NIGHT. WAS FREQUENTLY REQUESTING PO FLUIDS/FOODS- TOLERATED WELL. MENTATION LABILE, PT UNSURE OF DATE AND IS FREQUENTLY MUMBLING NON SENSICAL THINGS, OR SEEMS TO HAVE CONVERSATIONS WITH PEOPLE WHO ARE NOT PRESENT. PT RESTLESS AND FIDGETY ON BED, BUT REDIRECTIBLE. PT CIWA SCORES 14-18. MEDICATED PER EMAR. PT OCCASSIONALY WEARING 2L O2 VIA NC, BUT REMOVED CANNULA FREQUENTLY. SATS REMAIN ABOVE 90%. LUNGS CLEAR. PT COUGHING. 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 BP STABLE. PT HAD MILD TEMP OF 99.8 DURING SHIFT, BLANKETS REMOVED AND FAN APPLIED AND FEVER WAS REDUCED W/OUT FURTHER INTERVENTION. PT HAS WICKING SYSTEM IN PLACE W/ GOOD OUTPUT. SYSTEM CHANGED DURING SHIFT. PT HAD 2 LARGE BOWEL MOVEMENTS DURING SHIFT, REQUIRING BED/LINEN CHANGES. PT NOT USING CALL LIGHT, BUT SHOUTING OUT 'NURSE' FREQENTLY TO MAKE NEEDS KNOWN. BED IN LOWEST, LOCKED POSITION. CURTAIN LEFT OPEN FOR FREQUENT OBSERVATION. PT HAS NOT BEEN ATTEMPTING TO GET OUT OF BED. PLAN OF CARE ONGOING.
[2024-08-10 05:33] LABS: Bun/Creatinine Ratio 26.3 (12.0-20.0); Calcium, Blood 7.7 mg/dL (8.5-10.1); Creatinine, Blood 0.72 mg/dL (0.60-1.20); Potassium, Blood 3.7 mmol/L (3.5-5.5)
--- NOTE | 2024-08-10 08:30 | NUR ---
NURSING ICU DAYSHIFT: Assumed care of pt at approx 0700. Fairly alert, speech is slurred/mumbled, attempts to answer questions, oriented to self and type of facility but unsure of date/city. CIWA 11, w/some tremors and mild anxiousness. Skin with several wounds t/o, cellulitis of R thigh extending past previous markings, redness to b/l shins, scattered scabs/wounds, R middle finger black on tip w/o sensation, area surrounding black tip is tender w/touch. Requires frequent repositioning for skin health and ecouragement of wound healing. Cardiac monitoring in place, ST, no c/o CP/pressure, SBP 118 prior to a.m. meds, 2-3+ BLE edema. L/S tight t/o w/minimal air movement, clear in upper lobes w/crackles present in mid/lower lobes, respirations shallow/rapid, dyspnea w/minmimal exertion, O2 sat low to mid 90's on RA. PIV x1/PG x1, s/l w/abx and albumin as scheduled. Pt has been able to engage in some conversation and follows most commands though tires easily and needs encouragement to participate in ADLs. Seen by PMD, new d/o received. P.T. currently at bedside, will attempt to get OOB to recliner w/chair alarm. No s/s of acute distress at this time, changed to PCU status. Call light in reach though frequent rounding to be maintained.
[2024-08-10] MEDS ORDERED: Enoxaparin 40 MG/0.4 ML SYR SC SCH (09:00)
[2024-08-10] MEDS ORDERED: CALCIUM GLUC IN NACL, ISO-OSM 50 ML IV ONE (12:25)
[2024-08-10] MEDS ORDERED: Metoprolol Tartrate 25 MG Tab PO SCH ×2 (13:20→21:00)
--- NOTE | 2024-08-10 17:19 | NUR ---
NURSING ICU DAYSHIFT SUMMARY: Pt has been more alert and engaged today compared to recent days per notes though continues to have significant weakness. Edge of bed x3 today, attempt to stand x1, unable to successfully bear weight even w/two staff assist using gait belt and FWW. Able to eat meals w/encouragement, tolerated well and consumed 100%. Started on PO metoprolol for rate control, HR decreased to 90's. Remained on RA t/o shift, encouraged deep breathing, I/S placed in room for use w/guidance, non-prod cough remains. Continuing IV abx as scheduled. Wound care completed on RLE, wounds cleansed, dressings changed. Bedbath/linen change completed, PW device changed, frequent repositioning maintained. Pt currently sitting up in bed, resting comfortably. Forgetful to call light use though able to call out for staff and express needs. No s/s of acute distress at this time, cont to monitor until rpt is given to NOC RN.
[2024-08-11 03:44] LABS: BASOPHILS ABSOLUTE AUTO 0.03 K/mm3 (0.00-0.23); BASOPHILS PERCENT AUTO 1 % (0-2); EOSINOPHILS ABSOLUTE AUTO 0.14 K/mm3 (0.00-0.68); EOSINOPHILS PERCENT AUTO 3 % (0-6); Hematocrit 30.1 % (37.0-53.0); Hemoglobin 9.5 g/dL (13.5-17.5); IMMATURE GRAN ABSOLUTE AUTO 0.02 K/mm3 (0.00-0.10); IMMATURE GRAN PERCENT AUTO 0 % (0-1); LYMPHOCYTES ABSOLUTE AUTO 1.06 K/mm3 (0.84-5.20); LYMPHOCYTES PERCENT AUTO 22 % (21-46); MONOCYTES ABSOLUTE AUTO 0.37 K/mm3 (0.16-1.47); MONOCYTES PERCENT AUTO 8 % (4-13); Mean Corpuscular HGB 29.2 pg (26.0-34.0); Mean Corpuscular HGB Conc 31.6 g/dL (31.5-36.5); Mean Corpuscular Volume 93 fL (80-100); Mean Platelet Volume 9.7 fL (9.1-12.4); NEUTROPHILS ABSOLUTE AUTO 3.22 K/mm3 (1.96-9.15); NEUTROPHILS PERCENT AUTO 67 % (41-73); Platelet Count 87 K/mm3 (150-400); RDW Coefficient Variation 17.5 % (11.7-14.2); RDW Standard Deviation 59.7 fL (35.1-46.3); Red Blood Cell Count 3.25 M/mm3 (4.30-5.90); White Blood Cell Count 4.84 K/mm3 (4.00-11.30)
--- NOTE | 2024-08-11 03:50 | NUR ---
SHIFT SUMMARY: PT IS ALERT AND ABLE TO FOLLOW DIRECTIONS HE CAN MAKE HIS NEEDS KNOWN, HE IS SLOW TO RESPOND AND IS SLEEPY, ST, O2 2L NC WHILE SLEEPING BC OF APNEA, RESP SHALLOW COUGH AND DEEP BREATHING ENCOURAGES IS ENCOURAGED, INC OF BAB AT THIS TIME, PASSING GAS BOWEL TONES ACTIVE, URINATION IN MALE UREWICK FOR I AN O RT LASIX, ADEQUATE OUTPUT, WOUNDS TO LEFT LEG AND LEFT HAND WELL SCATTERED SCABS THROUGOUT BODY, CAN SWALLOW APPROPRIATLEY TAKES MEDS WHOLE WITH THIN LIQUIDS, PT IS ACTIVE WHILE SLEEPING CONSISTANTLY ROLLING AROUND BED REMOVING EQUIPMENT, CALL LIGHT WITH IN REACH, PT HAS NO EDUCATIONAL SHAWNEE OVER AT THIS TIME SO FREQUENT CHECKS ARE NECESSARY FOR SAFETY PT UNDERESTIMATES POTENTIAL FOR SAFETY MEASURES
[2024-08-11 04:04] LABS: Albumin, Blood 2.1 g/dL (3.4-5.0); Albumin/Globulin Ratio 0.4 (0.8-1.8); Bilirubin, Total 0.9 mg/dL (0.1-1.0); Bun/Creatinine Ratio 30.8 (12.0-20.0); Calcium, Blood 7.9 mg/dL (8.5-10.1); Creatinine, Blood 0.58 mg/dL (0.60-1.20); Globulin, Blood 5.2 g/dL (2.2-4.0); Potassium, Blood 3.8 mmol/L (3.5-5.5); Total Protein, Blood 7.3 g/dL (6.4-8.2)
[2024-08-11 07:04] VITALS: BP 120/73
[2024-08-11 11:54] VITALS: BP 129/76
[2024-08-11 16:09] VITALS: BP 118/64
--- NOTE | 2024-08-11 17:40 | NUR ---
SHIFT SUMMARY PT DID WELL THIS SHIFT. PT HAS REMAINED AWAKE AND ALERT THROUGHOUT THE DAY. PT ABLE TO ANSWER MOST ORIENTATION QUESTIONS, BUT IS FORGETFUL AT TIMES AND NEEDS REDIRECTION. PT UP TO RECLINER CHAIR AND UP TO BSC MULTIPLE TIMES THIS SHIFT WITH 1-2 PERSON ASSIST. PT WORKED WITH PT/OT THIS SHIFT. PT WITH GOOD APPETITE THROUGHOUT THE SHIFT. VITAL SIGNS HAVE REMAINED STABLE. PT ON ROOM AIR. PG AND PIV SALINE LOCKED. MALE WICKING SYSTEM IN PLACE WITH YELLOW URINE OUTPUT NOTED. WOUNDS TO LEGS AND BODY REMAIN UNCHANGED. WOUND DRESSING CHANGES DONE PER ORDERS. NO FAMILY AT BEDSIDE. WILL CONTINUE TO MONITOR AND REPORT OFF TO ONCOMING RN.
[2024-08-11] MEDS ORDERED: Furosemide 40 MG Tab PO SCH (18:00)
[2024-08-11] MEDS ORDERED: Amoxicillin/Clavulanate K 875 MG Tab PO SCH (21:00)
[2024-08-11 21:19] VITALS: BP 131/81
--- NOTE | 2024-08-11 22:26 | NUR ---
ASSUMPTION OF CARE/ASSESSMENT: ASSUMED CARE OF PT AT 1900; REPORT RECIEVED FROM AKILAH AVILA. PT A&O X 4, PLEASANT AND COOPERATIVE WITH CARE. PT ON RA, LUNGS CLEAR WITH DIM BASES, DENIES SOB AND SPO2 94<. ST ON MONITOR WITH HR 100-110, SBP 130'S, AND DENIES CHEST PAIN/PRESSURE. ABD ROUND, FIRM, PT STATES NORMAL, +BT AND TOLERATES PO INTAKE. PUREWICK IN PLACE, GOOD OUTPUT NOTED, URINE DARK YELLOW, CLEAR. RLL WITH CELLULTIS, WARM TO TOUCH AND TENDER; WOUND CLEANSED AND RE-DRESSED PER WOUND CARE ORDERS. LLE WITH SOME SCABS TO KNEE, CLEANSED AT PT'S REQUEST AND BACTRIM AND BANDAIDS APPLIED TO AREA. PT ABLE TO MAKE NEEDS KNOWN, BED LOWERED, AND CALL LIGHT IN REACH.
[2024-08-12 00:21] VITALS: BP 105/82
[2024-08-12 03:38] LABS: BASOPHILS ABSOLUTE AUTO 0.02 K/mm3 (0.00-0.23); BASOPHILS PERCENT AUTO 0 % (0-2); EOSINOPHILS ABSOLUTE AUTO 0.15 K/mm3 (0.00-0.68); EOSINOPHILS PERCENT AUTO 3 % (0-6); Hematocrit 28.3 % (37.0-53.0); Hemoglobin 9.1 g/dL (13.5-17.5); Mean Corpuscular HGB 29.4 pg (26.0-34.0); Mean Corpuscular HGB Conc 32.2 g/dL (31.5-36.5); Mean Corpuscular Volume 92 fL (80-100); Mean Platelet Volume 10.5 fL (9.1-12.4); Platelet Count 75 K/mm3 (150-400); RDW Coefficient Variation 17.2 % (11.7-14.2); RDW Standard Deviation 58.1 fL (35.1-46.3); Red Blood Cell Count 3.09 M/mm3 (4.30-5.90)
[2024-08-12 03:39] VITALS: BP 130/77
[2024-08-12 03:40] LABS: IMMATURE GRAN ABSOLUTE AUTO 0.02 K/mm3 (0.00-0.10); IMMATURE GRAN PERCENT AUTO 0 % (0-1); LYMPHOCYTES PERCENT AUTO 25 % (21-46); MONOCYTES ABSOLUTE AUTO 0.38 K/mm3 (0.16-1.47); MONOCYTES PERCENT AUTO 7 % (4-13); NEUTROPHILS ABSOLUTE AUTO 3.33 K/mm3 (1.96-9.15); NEUTROPHILS PERCENT AUTO 64 % (41-73)
[2024-08-12 03:56] LABS: Bun/Creatinine Ratio 35.8 (12.0-20.0); Calcium, Blood 7.6 mg/dL (8.5-10.1); Creatinine, Blood 0.64 mg/dL (0.60-1.20); Potassium, Blood 4.1 mmol/L (3.5-5.5)
--- NOTE | 2024-08-12 06:10 | NUR ---
SHIFT SUMMARY: NO ACUTE CHANGES OVERNIGHT; VSS THROUGHOUT THE SHIFT. PT SLEPT ON AND OFF THROUGHOUT THE NIGHT, RESTLESS IN BED AT TIMES. RLE DRESSING REMAINS C/D/I. PT USING CALL LIGHT APPROPRIATELY. BED LOWERED. WILL REPORT OFF TO ONCOMING RN.
[2024-08-12 08:12] VITALS: BP 114/64
[2024-08-12 15:41] VITALS: BP 143/99
--- NOTE | 2024-08-12 15:44 | NUR ---
TRANSFER TO MEDICAL REPORT CALLED VIA PHONE, ALL QUESTIONS ANSWERED. PT TAKEN TO ROOM 306 VIA WHEELCHAIR. ALL PT BELONGINGS SENT WITH PT.
--- NOTE | 2024-08-12 17:11 | NUR ---
assumed care of pt, pt transfered from pcu 20 pt a/o x4 and cooperative. has no c/o no distress. pt tearful about condition and is able to make needs known. purwic is inplace. i spoke with pt about using urinal instead but he insisted he felt more comfortable using the purwic. call light within reach.
[2024-08-12 19:34] VITALS: BP 139/83
[2024-08-13 03:46] VITALS: BP 124/81
--- NOTE | 2024-08-13 05:09 | NUR ---
SHIFT SUMMARY PT ALERT AND ORIENTED TIMES 4. PT IS ADMITTED FOR ERYSIPELAS OF LOWER EXTREMITY, STREPTOCOCCAL BACTEREMIA, ACUTE HYPERCAPNIC RESPIRATORY FAILURE. PT HAS POWERGLIDE IN LEFT UPPER ARM. TAKES MEDICATION WHOLE WITH WATER. PT IS ALERT AND ORIENTED TIMES 4. PT USES PUREWICK. PT IS COOPERATIVE WITH CARE, ROOM AIR. HEART HEALTHY DIET. . CALL LIGHT WITHIN REACH, RAILS TIMES 2, BED IN LOW POSITION.
[2024-08-13 07:26] VITALS: BP 135/82
[2024-08-13] MEDS ORDERED: Spironolactone 50 MG Tab PO SCH (09:00)
[2024-08-13] MEDS ORDERED: Furosemide 40 MG Tab PO SCH (09:00)
[2024-08-13] MEDS ORDERED: Metoprolol Succinate 50 MG TABCR PO SCH (09:00)
[2024-08-13 15:54] VITALS: BP 150/98
--- NOTE | 2024-08-13 18:14 | NUR ---
SHIFT SUMMARY PT IS A/OX4, INDEPENDENT IN THE ROOM. NO ACUTE CHANGES THROUGHOUT THIS SHIFT. PURWICK REMOVED THIS MORNING AND ENCOURAGING AMBULATION TO BATHROOM AND UP TO CHAIR WITH MEALS. DRESSING TO WOUNDS CHANGED THIS AFTERNOON. PT REFUSING LASIX R/T THE INCREASE IN URINATION EXPERIENCED AND STATING "THE SWELLING WILL GO DOWN IN A COUPLE DAYS". PT CALLS APPROPRIATELY USING THE CALL LIGHT.
[2024-08-13 19:16] VITALS: BP 148/92
[2024-08-13] MEDS ORDERED: Gabapentin 300 MG Cap PO SCH (21:00)
[2024-08-14 03:17] VITALS: BP 158/90
--- NOTE | 2024-08-14 05:45 | NUR ---
SHIFT SUMMARY PT ALERT AND ORIENTED TIMES 4. PT IS ADMITTED FOR ERYSIPELAS OF LOWER EXTREMITY, STREPTOCOCCAL BACTEREMIA, ACUTE HYPERCAPNIC RESPIRATORY FAILURE. PT HAS POWERGLIDE IN LEFT UPPER ARM. TAKES MEDICATION WHOLE WITH WATER. PT IS ALERT AND ORIENTED TIMES 4. . PT IS COOPERATIVE WITH CARE, ROOM AIR. HEART HEALTHY DIET. . CALL LIGHT WITHIN REACH, RAILS TIMES 2, BED IN LOW POSITION.
[2024-08-14 07:37] VITALS: BP 122/81
[2024-08-14] MEDS ORDERED: CALCIUM GLUC IN NACL, ISO-OSM 50 ML IV ONE (07:50)
[2024-08-14] MEDS ORDERED: Losartan Potassium 25 MG Tab PO SCH (09:00)
[2024-08-14] MEDS ORDERED: Furosemide 40 MG Tab PO SCH (09:00)
[2024-08-14] MEDS ORDERED: Metoprolol Succinate 50 MG TABCR PO SCH (09:00)
[2024-08-14] MEDS ORDERED: Spironolactone 50 MG Tab PO SCH (09:00)
--- NOTE | 2024-08-14 10:09 | NUR ---
AM SHIFT NOTE: PATIENT A/OX4, ANSWER TO QUESTIONS APPROPRIATELY AND ABLE TO MAKE NEEDS KNOWN. PATIENT REFUSED LAB DRAWN WELL HIS SCHEDULED AM MEDS. PER PATIENT "I WILL NOT TAKE MY MEDICATION AND TAKE MY BLOOD OUT UNTIL I TALK TO THE DOCTOR." CALLED DR. NOVA REGARDING THIS ISSUE. PER DR. NOVA HE WILL ROUND ON PATIENT.
[2024-08-14] MEDS ORDERED: Gabapentin 300 MG Cap PO SCH ×2 (11:15→21:00)
[2024-08-14] MEDS ORDERED: Acetaminophen 325 MG TABLET PO ONE (11:15)
--- NOTE | 2024-08-14 15:11 | NUR ---
PT OUT IN [place] SPEAKING LOUDLY STATES "YOUR AURA LOOKS GOOD BUT SOME PEOPLE AROUND HERES A[place] ARE PURE EVIL. TODAY IS HITLERS BIRTHDAY AND THE MOST EVIL DAY OF ALL BECAUSE HE INVENTED METHAMPHETAMINE. CHECK ON ME BY 6 AM OR I AM MAKING A PHONE CALL AND IT WONT BE GOOD" PT DENIES ANY NEEDS AT THIS TIME AND INSTRUCTED TO USE CALL LIGHTIF HAS ANY NEEDS. PT WALKED BACK INTO ROOM AND SLAMMED DOOR
[2024-08-14 15:43] VITALS: BP 150/106
[2024-08-14] MEDS ORDERED: OLANZapine 10 MG Vial IM PRN (17:15)
--- NOTE | 2024-08-14 17:23 | NUR ---
SHIFT SUMMARY: PATIENT ALERT AND ORIENTED, SOME CONFUSION AND AGITATION, BUT REDIRECTABLE. PATIENT REFUSED SCHEDULED AM MEDS, LAB DRAWN AND DRESSING CHANGED TO R LEG. DR. NOVA IS AWARE OF THIS ISSUE. PATIENT REPORTS PAIN TO BLE'S. PATIENT MEDICATED c TYLENOL AND GABAPENTIN PER REQUEST. PATIENT HAS GOOD APPETITE, CONTINENT OF BAB, AMBULATES TO BATHROOM c FWW INDEPENDENTLY. VITAL SIGNS REVIEWED. CALL LIGHT IN REACH.
--- NOTE | 2024-08-14 18:16 | NUR ---
1720 ASSUMED CARE OF PATIENT. PT WATCHING TV , DENIES ANY NEEDS AT THIS TIME. 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 ORIENTED TO PERSON, PLACE AND TIMES,
--- NOTE | 2024-08-14 18:39 | NUR ---
WATCHING TV. PT DENIES ANY NEEDS AT THIS TIME.
[2024-08-14 19:40] VITALS: BP 137/85
[2024-08-15 03:55] VITALS: BP 150/72
[2024-08-15 05:25] LABS: BASOPHILS ABSOLUTE AUTO 0.04 K/mm3 (0.00-0.23); BASOPHILS PERCENT AUTO 1 % (0-2); EOSINOPHILS ABSOLUTE AUTO 0.08 K/mm3 (0.00-0.68); EOSINOPHILS PERCENT AUTO 1 % (0-6); Hematocrit 28.3 % (37.0-53.0); Hemoglobin 9.1 g/dL (13.5-17.5); IMMATURE GRAN ABSOLUTE AUTO 0.02 K/mm3 (0.00-0.10); IMMATURE GRAN PERCENT AUTO 0 % (0-1); LYMPHOCYTES ABSOLUTE AUTO 0.92 K/mm3 (0.84-5.20); LYMPHOCYTES PERCENT AUTO 14 % (21-46); MONOCYTES ABSOLUTE AUTO 0.63 K/mm3 (0.16-1.47); MONOCYTES PERCENT AUTO 10 % (4-13); Mean Corpuscular HGB 29.2 pg (26.0-34.0); Mean Corpuscular HGB Conc 32.2 g/dL (31.5-36.5); Mean Corpuscular Volume 91 fL (80-100); Mean Platelet Volume 9.9 fL (9.1-12.4); NEUTROPHILS ABSOLUTE AUTO 4.78 K/mm3 (1.96-9.15); NEUTROPHILS PERCENT AUTO 74 % (41-73); Platelet Count 139 K/mm3 (150-400); RDW Standard Deviation 56.7 fL (35.1-46.3); Red Blood Cell Count 3.12 M/mm3 (4.30-5.90); White Blood Cell Count 6.47 K/mm3 (4.00-11.30)
[2024-08-15 05:46] LABS: Bun/Creatinine Ratio 33.2 (12.0-20.0); Calcium, Blood 7.8 mg/dL (8.5-10.1); Creatinine, Blood 0.63 mg/dL (0.60-1.20); Potassium, Blood 4.2 mmol/L (3.5-5.5)
--- NOTE | 2024-08-15 06:29 | NUR ---
SUMMARY: PT A/OX4 BUT MOOD CAN BE VERY LABILE W/FLIGHTS OF IDEAS AND HE APPEARS TO HAVE PARANOID AND GRANDIOSE DELUSIONS AT TIMES. PSYCH CONSULT IS PENDING AND PRN ZYPREXA WAS PROVIDED THIS AM FOR ESCALATING ANXIETY. PT BEGAN SHIFT PLEASANT AND COOPERATIVE W/CARE AND WAS AGREEABLE TO TAKE MAJORITY OF MEDS AFTER FREQUENTLY REFUSING CARE/MEDS. HE WOULDN'T ALLOW STAFF TO PROVIDE WOUND CARE RX'D BUT REQUESTED MEPITEL DX'S BE APPLIED TO OPEN SORES ON R.LEG AND INSISTED THEY WERE LOOSELY WRAPPED W/COBAN. BLE'S REMAIN EDEMATOUS, DISCOLORED, REDDENED AND W/PATCHES OF SORES AND PEELING SKIN. HE'S UP AD DOMINIQUE W/FWW IN ROOM BUT IS AWARE OF LIMITATIONS AND CALLS APPROPRIATELY PRN. HE WAS PROVIDED MANY SNACKS T/O NOCTE AND VARIOUS NON-ACUTE NEEDS WERE ATTENDED TO REGULARLY. PT REFUSED PAIN MEDS AND "WANTS MD TO COME PRESCRIBE HIM CBD BECAUSE IT'S LEGAL". ATTEMPTS AT CALMING/DEECALATING AGGITATION ARE MOST SUCCESSFUL WHEN UTILIZING VARIOUS STAFF TO ADDRESS REQUEST. HE'S POSSIBLY DISCHARGING TODAY. VSS/AFEBRILE, NO ACUTE CHANGES. WILL REPORT TO DAY RN.
[2024-08-15 09:17] VITALS: BP 145/77
--- NOTE | 2024-08-15 11:26 | NUR ---
Patient removed bandage from right 3rd finger, refused Spironlactone after telling the physician he would take it.
[2024-08-15 17:11] VITALS: BP 131/90
--- NOTE | 2024-08-15 18:12 | NUR ---
SHIFT SUMMARY: PT A&O X4. NON-COOPERATIVE WITH CARE. PT ONLY TOOK ORAL ABX AND GABAPENTIN THIS SHIFT. PT GOES OFF ON TANGENTS AND WAS IRRITABLE THAT THERE IS NO "CARPET ON THE HOSPITAL FLOOR." PT STATED SOMEONE WAS COMING TO PICK HIM UP AROUND 1730 BUT ENDED UP NOT BEING ABLE TO D/C D/T NO RIDE. PT ONLY WORKED WITH OT FOR A SHORT TIME AND REFUSED TO WORK WITH PT. DR. MARIEE ARRIVED THIS SHIFT FOR PSYCH CONSULT (SEE CONSULT NOTE). CALL LIGHT IN REACH. BED IN LOWEST POSITION.
[2024-08-15 19:35] VITALS: BP 131/75
--- NOTE | 2024-08-15 21:06 | NUR ---
TEMP 102.7. REFUSED TYLENOL WHEN OFFERED. EASILY AGITATED. FLUIDS ENCOURAGED. CALL LIGHT IN REACH
--- NOTE | 2024-08-16 03:21 | NUR ---
TORCH OPERATOR SUMMARY TEMP ELEVATAED AT HS, BUT REFUSED TYLENOL WHEN OFFERED/ENCOURAGED. HR WAS 121 AT THE TIMES WELL, OTHERWISE VSS. UP AD DOMINIQUE, ENCOURAGED TO CALL FOR ASSIST IF NEEDING OOB, BUT PT GIVING VERBAL DEFIANCE WITH EACH STAFF REQUEST. TOLERATING SNACKS WELL. HOB ELEVATED. ACCEPTED HS PO ANTIBIOTIC AND GABAPENTIN ,EDS BUT REFUESED MOST OF THE REST. LATER, ACCEPTED PRN OF ZYPREXA AND EVENTUALLY APPARENTLY FELL ASLEEP. HAS BEEN RESTING QUIELTY WITH FEW INTERRUPTIONS SINCE. CALL LIGHT IN REACH, RAILS UP X 2 AND BED IN LOW POSITION FOR SAFETY. WILL CONT TO [facility] AND ENCOURAGE COMPLIANCE WITH TREATMENT.
--- NOTE | 2024-08-16 04:01 | NUR ---
DISCHARGE NOTE PT EVIDENTLY CALLED A PERSON TO PICK HIM UP HERE AT THE HOSPITAL. CALL FROM THE DESK THAT HIS RIDE HAD ARRIVED TO GET HIM. PT SIGNED AMA SHEET THAT INCLUDED POSSIBLE ADVERSE ISSUES IF HE LEFT WITHOUT FINISHING TREATMENT. DEMANDED TO LEAVE ANYWAY. ASSISTED TO THE WHEELCHAIR, NOTED BLEEDING OF RIGHT LEG. GAUZE AND WRAPPING APPLIED. ASSISTED TO ED WHERE DARK CAR PARKED AT ENTRANCE. SITE MONITOR CAME AROUND TO ASSIST PT TO GET INTO THE CAR. NAME WAS "DARIAN" AND HE SAID HE KNEW PT. I SUGGESTED THAT THEY GET PT LEG SEEN BY A MEDICAL PERSON WHEN THEY GET HOME. VOICED THEY WOULD. PT LEFT WITH ALL BELONGINGS. CHARGE NURSE ASSISSTED WITH PAPERWORK AND MD (DR PATE NOTIFIED)
== END 2024-08-16 03:49 | disposition left against medical advice (07) | DRG 871 ==
LOC: ER 13:32 → ERHOLD 20:02 → PCU 20:02 → MEDS 20:02 → PCU 22:11 → MEDS 08-03 12:24 → ICUE 08-05 18:33 → MEDS 08-12 15:30
PROVIDERS: Internal Medicine; Nurse Practitioner Acute Care; Student in an Organized Health Care Education/Training Program; ADMIT Internal Medicine
PROC: 3E03329 Introduction of Other Anti-infective into Peripheral Vein, Percutaneous Approach (ICD-10-PCS; principal; 2024-08-01)
PROC: HZ2ZZZZ Detoxification Services for Substance Abuse Treatment (ICD-10-PCS; 2024-08-01)
PROC: 5A09357 Assistance with Respiratory Ventilation, Less than 24 Consecutive Hours, Continuous Positive Airway Pressure (ICD-10-PCS; 2024-08-06)
DX: A40.0 Sepsis due to streptococcus, group A (principal); I50.21 Acute systolic (congestive) heart failure; J96.01 Acute respiratory failure with hypoxia; I96 Gangrene, not elsewhere classified; E87.1 Hypo-osmolality and hyponatremia; D61.818 Other pancytopenia; Z59.02 Unsheltered homelessness; F10.239 Alcohol dependence with withdrawal, unspecified; L03.115 Cellulitis of right lower limb; L03.116 Cellulitis of left lower limb; K70.31 Alcoholic cirrhosis of liver with ascites; A46 Erysipelas; G47.33 Obstructive sleep apnea (adult) (pediatric); I95.9 Hypotension, unspecified; M19.041 Primary osteoarthritis, right hand; E66.01 Morbid (severe) obesity due to excess calories; F15.10 Other stimulant abuse, uncomplicated; F14.10 Cocaine abuse, uncomplicated; E87.6 Hypokalemia; F17.210 Nicotine dependence, cigarettes, uncomplicated; E88.09 Other disorders of plasma-protein metabolism, not elsewhere classified; F22 Delusional disorders; Z53.29 Procedure and treatment not carried out because of patient's decision for other reasons; Z68.36 Body mass index [BMI] 36.0-36.9, adult; Z71.41 Alcohol abuse counseling and surveillance of alcoholic; Z91.199 Patient's noncompliance with other medical treatment and regimen due to unspecified reason
CPT/HCPCS: 36415; 36600; 51701; 71046; 73120; 73130; 73701; 76705; 76882; 80048; 80053; 80061; 80069; 80202; 80320; 82330; 82550; 82803; 82947; 83036; 83605; 83735; 83880; 84436; 84443; 84484; 85014; 85018; 85025; 85027; 85610; 85651; 87040; 87070; 87075; 87077; 87147; 87186; 87205; 93005; 93010; 93306; 94640; 94660; 94664; 94760; 94762; 96361; 96365; 97110; 97162; 97166; 97530; 97535; 99285-25; A9270; C1751; G0480; J0612; J0690; J0692; J0696; J1644; J1650; J1940; J2060; J2405; J3370; J3475; J7030; J7040; J7050; P9047; Q9967